=== PATIENT | female | born 1995 ===

== ENCOUNTER 2020-07-23 12:10 | Emergency (ER) | payer SELFPAY ==
[2020-07-23 12:37] VITALS: BP 117/66
[2020-07-23] MEDS ORDERED: DIPHtheria,PERTUSSIS(ACELL),TETANUS VACCINE/PF 0.5 ML VIAL IM ONE (13:11)
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
[2020-07-23] MEDS ORDERED: ONDANSETRON 4 MG ODT TAB PO ONE (14:52)
[2020-07-23] MEDS ORDERED: oxyCODONE /ACETAMINOPHEN 5-325MG TAB PO ONE (14:52)
== END 2020-07-23 17:13 | disposition home or self-care (01) ==
LOC: ED 12:10
DX: S09.90XA Unspecified injury of head, initial encounter (principal); S05.12XA Contusion of eyeball and orbital tissues, left eye, initial encounter; S82.832A Other fracture of upper and lower end of left fibula, initial encounter for closed fracture; Y04.2XXA Assault by strike against or bumped into by another person, initial encounter; Y93.89 Activity, other specified; Y92.89 Other specified places as the place of occurrence of the external cause; Y99.8 Other external cause status
CPT/HCPCS: 36415; 70450; 70486; 84703; 90471; 90715; Q0162